=== PATIENT | female | born 2000 | race Two or more races ===

== ENCOUNTER 2023-01-20 13:25 | Inpatient (IN) | payer OTHER ==
[~2023-01-20] VITALS: Ht 157.5 cm; Wt 68.9 kg
[2023-01-28] MEDS ORDERED: PRENATAL TABLE1 EAC1 PO (07:32)
== END 2023-01-30 14:03 | disposition home or self-care (01) | DRG 807 ==
LOC: LDR 01-28 05:30 → OB/GYN 01-28 05:30
PROVIDERS: ADMIT Specialist; ATTEND Specialist
PROC: 10E0XZZ Delivery of Products of Conception, External Approach (ICD-10-PCS; principal; 2023-01-28)
PROC: 0W8NXZZ Division of Female Perineum, External Approach (ICD-10-PCS; 2023-01-28)
PROC: 3E033VJ Introduction of Other Hormone into Peripheral Vein, Percutaneous Approach (ICD-10-PCS; 2023-01-28)
PROC: 3E0P7VZ Introduction of Hormone into Female Reproductive, Via Natural or Artificial Opening (ICD-10-PCS; 2023-01-28)
PROC: 4A1HXCZ Monitoring of Products of Conception, Cardiac Rate, External Approach (ICD-10-PCS; 2023-01-28)
DX: O48.0 Post-term pregnancy (principal); Z37.0 Single live birth; Z3A.40 40 weeks gestation of pregnancy; Z20.822 Contact with and (suspected) exposure to COVID-19